=== PATIENT | male | born 1990 | race Caucasian/White ===

== ENCOUNTER 2021-06-21 16:21 | Emergency (ER) | payer OTHER, SELFPAY ==
--- NOTE | 2021-06-21 17:35 | HMH.EDUTC ---
[facility] [place] Impression: Abscess of right axilla Disposition: Home, Self-Care Condition on Discharge: Good Instructions: Boil Additional Instructions: Apply warm wet compresses to the affected sites three or four times per day for 15 minutes as tolerated. Take the antibiotics as directed. Follow up with your regular doctor. GO TO THE ER FOR ANY WORSENING SYMPTOMS OR CONCERNS Prescriptions: Sulfamethoxazole/Trimethoprim [Bactrim DS tablet] 1 each PO BID 10 Days #20 tab Transmission Status: Pending to [facility] Mupirocin [Bactroban 2% Ointment 22gm tube] 1 applicatio TP TID 7 Days #1 gm Transmission Status: Pending to [facility] cephALEXin [cephALEXin 500mg capsule] 500 mg PO Q6H 10 Days #40 cap [facility] Referrals: Provider,Referral, MD [Primary Care Provider] - Time of Disposition: 18:12 Medical Decision Making - Medical Records Medical records reviewed: No: I reviewed the patient's medical records. - Gianfranco Inquiry Pt receiving controlled substance: No Vital Signs: 06/21/21 17:38 Temperature 98.8 F Temperature Source Oral Pulse Rate [Right Brachial] 123 H Respiratory Rate 18 Blood Pressure [Right Arm] 139/89 Blood Pressure Mean [Right Arm] 105 Blood Pressure Source [Right Arm] Automatic Cuff Blood Pressure Position [Right Arm] Sitting 02 Sat by Pulse Oximetry 99 Oxygen Delivery Method Room Air Orders (Tests/Meds): ED MEDICATIONS Discontinued Medications Generic Name Dose Route Start Last Admin Trade Name Nenoq PRN Reason Stop Dose Admin Ceftriaxone Sodium 1 gm 06/21/21 17:52 06/21/21 18:00 Ceftriaxone 1gm Vial IM 06/21/21 17:53 1 gm ONCE ONE Administration Lidocaine HCl 0 ml 06/21/21 17:52 06/21/21 18:00 Lidocaine 1% 5ml Pf Vial IM 06/21/21 17:53 2.1 ml ONCE ONE [place] [facility] [place] - General Stated complaint: sPOT UNDER r aRM Time Seen by Provider: 06/21/21 17:35 - History of Present Illness Provider Complaint: He states that he has multiple boils under his left arm. These have been present for the past 3 days. He states they are very painful and tender to touch. - Related Data Previous Rx's Medication Instructions Recorded Mupirocin [Bactroban 2% Ointment 1 applicatio TP TID 7 Days #1 gm 06/21/21 22gm tube] Sulfamethoxazole/Trimethoprim 1 each PO BID 10 Days #20 tab 06/21/21 [Bactrim DS tablet] cephALEXin [cephALEXin 500mg 500 mg PO Q6H 10 Days #40 cap 06/21/21 capsule] Allergies Allergy/AdvReac Type Severity Reaction Status Date / Time NO KNOWN ALLERGIES Allergy Uncoded 07/19/17 15:11 [facility] History - Hepatitis A Screen Attestation statement:: This patient has been screened for Hepatitis A risk factors. I have reviewed the patient's past medical history: Yes ROS Obtained: Yes All systems reviewed & no additional complaints - Constitutional Constitutional: Denies chills, Denies fever(s) - Eyes Eyes: Denies eye discharge - Musculoskeletal Musculoskeletal: Denies joint pain, Denies back pain, Denies neck pain - Integumentary/Breasts Skin/Breast: Reports as per HPI Physical Exam - General General appearance: alert, in no apparent distress - Head Head exam: atraumatic, normocephalic, normal inspection - Eye Eye exam: Present: normal appearance, PERRL, EOMI - ENT ENT exam: Present: normal exam, normal oropharynx, mucous membranes moist, TM's normal bilaterally, normal external ear exam - Neck Neck exam: Present: normal inspection, full ROM, trachea midline. Absent: meningismus, lymphadenopathy - Chest Chest inspection: Present: normal inspection, symmetric chest wall rise. Absent: tenderness - Respiratory Respiratory exam: Present: normal lung sounds bilaterally. Absent: respiratory distress - Cardiovascular Cardiovascular exam: Present: regular rate, normal rhythm. Absent: JVD - A
[2021-06-21 17:38] VITALS: BP 139/89; PULSE 123; RESP 18; TEMP 37.1; O2SAT 99; BMI 23.6
[2021-06-21 18:25] VITALS: BP 139/89; PULSE 123; RESP 18; TEMP 37.1; O2SAT 99
== END 2021-06-21 18:25 | disposition home or self-care (01) ==
PROVIDERS: Emergency Provider Nurse Practitioner Family
DX: L02.411 Cutaneous abscess of right axilla (principal)
CPT/HCPCS: 96372; 99202; G0463

== ENCOUNTER 2022-07-06 23:46 | Emergency (ER) | payer OTHER, SELFPAY ==
--- NOTE | 2022-07-06 23:42 | ECG_ITS ---
APPROVED REPORT Exam: Resting ECG HR:75 bpm ECG Measurements Heart Rate 75 AXES VT 127 P 62 QRSd 83 QRS 75 QT 347 T 79 QTc 376 Conclusion SINUS RHYTHM WITH SINUS ARRHYTHMIA NORMAL ECG UNCONFIRMED REPORT Electronically signed by : Abram Montano MD 07/07/2022 21:54:04
[2022-07-06 23:48] VITALS: BP 137/102; PULSE 86; RESP 18; TEMP 36.8; O2SAT 100; BMI 25.8
[2022-07-07 00:02] VITALS: BP 137/102; PULSE 77; RESP 21; O2SAT 100
--- NOTE | 2022-07-07 00:04 | XR_ITS ---
PROCEDURE INFORMATION: Exam: XR Chest Exam date and time: 07/07/2022 12:04 AM Age: 32 years old Clinical indication: On breathing and sternal or substernal pain; Additional info: Cp, states he is always SOA TECHNIQUE: Imaging protocol: Radiologic exam of the chest. Views: 2 views. Total images: 1 COMPARISON: No relevant prior studies available. FINDINGS: Lungs: Unremarkable. No consolidation. Pleural spaces: Unremarkable. No pleural effusion. No pneumothorax. Heart/Mediastinum: Unremarkable. No cardiomegaly. Bones/joints: Unremarkable. IMPRESSION: No acute findings.
--- NOTE | 2022-07-07 00:04 | CT_ITS ---
PROCEDURE INFORMATION: Exam: CTA Chest With Contrast Exam date and time: 07/07/2022 12:18 AM Age: 32 years old Clinical indication: On breathing and sternal or substernal pain; Patient HX: States he is always SOA; Additional info: Cp TECHNIQUE: Imaging protocol: Computed tomographic angiography of the chest with contrast. 3D rendering (Not supervised by radiologist): MIP and/or 3D reconstructed images were created by the technologist. Total images: 2 Radiation optimization: All CT scans at this facility use at least one of these dose optimization techniques: automated exposure control; mA and/or kV adjustment per patient size (includes targeted exams where dose is matched to clinical indication); or iterative reconstruction. Contrast material: ISOVUE; Contrast volume: 70 ml; Contrast route: INTRAVENOUS (IV); COMPARISON: CR XR CHEST 2V 07/07/2022 12:04 AM FINDINGS: Pulmonary arteries: Pulmonary artery evaluation is of excellent technical quality with no pulmonary artery embolism. 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 Aorta: No thoracic aortic aneurysm, dissection or other acute thoracic aortic injury. Lungs: Benign granulomatous disease of the lung is noted. Bronchial inflammation is evident. Pleural spaces: Unremarkable. No pneumothorax. No pleural effusion. Heart: Unremarkable. No cardiomegaly. No pericardial effusion. Lymph nodes: Unremarkable. No enlarged lymph nodes. Bones/joints: Unremarkable. No acute fracture. Soft tissues: Unremarkable. IMPRESSION: 1. No pulmonary artery embolism. 2. No thoracic aortic aneurysm, dissection or other acute thoracic aortic injury. 3. Findings of mild bronchial inflammation/bronchitis. No consolidation.
[2022-07-07 00:08] LABS: Coronavirus 19, PCR Not Detected (NotDetected); Influenza A, PCR Not Detected (NotDetected); Influenza B, PCR Not Detected (NotDetected)
[2022-07-07 00:20] LABS: Alanine Aminotransferase 25 U/L (12-78); Albumin Level 4.7 g/dl (3.5-5.0); Albumin/Globulin Ratio 1.2 (1.1-1.8); Alkaline Phosphatase 98 U/L (38-126); Amylase 72 U/L (30-110); Anion Gap 12.7 mEq/L (5-15); Aspartate Amino Transferase 31 U/L (17-59); Blood Urea Nitrogen 7 mg/dl (9-20); Calcium 9.9 mg/dl (8.4-10.2); Carbon Dioxide 32 mmol/L (22.0-30.0); Chloride 101 mmol/L (98-107); Creatinine Clearance Estimated 150 mL/min (50-200); Estimated Glomerular Filt Rate 111 ml/min (>60); GFR (African American) 134 ML/MIN (>60); Globulin 3.8 g/dL (1.3-3.2); Glucose 91 mg/dl (74-100); Lipase 64 U/L (23-300); Magnesium 2.2 mg/dl (1.6-2.3); Potassium 3.7 mmoL/L (3.5-5.1); Sodium 142 mmol/L (136-145); Total Protein,Serum 8.5 g/dl (6.3-8.2)
[2022-07-07 00:30] VITALS: BP 147/105; PULSE 74; RESP 17; O2SAT 99
[2022-07-07 00:32] LABS: Troponin I < 0.01 ng/ml (0.00-0.034)
[2022-07-07 00:59] LABS: Basophils # 0.1 K/mm3 (0-0.2); Basophils % 1.1 % (0.1-2.0); Eosinophils % 0.7 % (0.1-12.0); Hematocrit 49.8 % (42.0-52.0); Hemoglobin 16.5 g/dL (14.1-18.0); Lymphocytes # 1.7 K/mm3 (0.7-4.5); Lymphocytes % 25.9 % (10-50); Mean Corpuscular HGB Conc 33.1 g/dL (31.8-35.4); Mean Corpuscular Hemoglobin 30.9 pg (27.0-31.2); Mean Corpuscular Volume 93.5 fl (80-94); Mean Platelet Volume 8.5 fl (7.4-10.4); Monocytes # 0.5 K/mm3 (0.1-1.0); Monocytes % 7.8 % (1.7-9.3); Neutrophils # 4.2 K/mm3 (1.8-7.8); Neutrophils % 64.5 % (37.0-80.0); Platelet Count 381 K/mm3 (142-424); Red Blood Count 5.33 M/mm3 (4.60-6.20); White Blood Count 6.6 K/mm3 (4.8-10.8)
[2022-07-07 01:00] VITALS: BP 147/88; PULSE 59; RESP 18; O2SAT 99
--- NOTE | 2022-07-07 01:37 | HMH.EDCP ---
Discharge Plan Disposition Chief Complaint: Chest Pain Prescriptions Prescriptions: No Action sulfamethoxazole-trimethoprim 1 EACH tablet 1 each PO BID 10 Days Qty: 20 0RF cephalexin 500 MG capsule 500 mg PO Q6H 10 Days Qty: 40 0RF mupirocin 22 GM ointment 1 applicatio TP TID 7 Days Qty: 1 0RF Referrals Follow up/Referrals: Provider,Referral, MD [Primary Care Provider] - See instructions Clinical Impressions Clinical Impression: Atypical chest pain Instructions Patient Instructions: DI for Atypical Chest Pain Discharge ED Provider: Stephen Zabala Chest Pain HPI General Chief Complaint: Chest Pain Stated Complaint: Chest Pain Time Seen by Provider: 07/07/22 01:37 Mode of Arrival: Ambulatory Source of Information: Patient and Medical Record Limitations: No Limitations Description of Symptoms (Recalled from ER Triage Doc. by RN): Pt c/o chest pain that began last night. States the pain is midline and does not radiate, however, patient states that earlier today it did radiate. Pt states that the pain is worse with inspiration and gets better when he doesnot move. History of Present Illness HPI narrative: mid ant- chest pain which started about 24 hrs ago with no fever or cough and no recent viral illness - no positional pain and - no known cardiac illness - MD complaint: chest pain indicative of cardiac Onset (ago): day(s) Duration: intermittent Activity at onset: during rest Pain location: left chest Severity: moderate Quality: sharp Pain radiation: none Associated symptoms: dyspnea Risk Factors for CAD: Family Hx of CAD and Smoking Treatments prior to or on arrival for Cardiac Chest Pain: none NOÉ Score for Non-Stemi Age of Patient: 30-39 years old Heart Rate: 50-69 bpm Systolic Blood Pressure: 140-159 mmHg Serum Creatinine: 0.80-1.19 mg/dl CHF [place] Class: I-No CHF Other Risk Factors: None Non-Stemi Risk Score: 42 Related Data Previous Rx's Medication Instructions Recorded cephalexin 500 mg capsule 500 mg PO Q6H 10 days #40 caps 06/21/21 mupirocin 2 % topical ointment 1 applicatio TP TID 7 days ##1 06/21/21 sulfamethoxazole 800 1 each PO BID 10 days #20 tabs 06/21/21 mg-trimethoprim 160 mg tablet Allergies Allergy/AdvReac Type Severity Reaction Status Date / Time NO KNOWN ALLERGIES Allergy Uncoded 07/19/17 15:11 [facility] Disclaimer: The information contained in this section may have been updated after the patient was seen, as this information can be updated by other users. Social History Smoking Status: Current every day smoker alcohol intake: never current occupational status: employed Travel in the last 8 weeks: None ROS Obtained: Yes All systems reviewed & no additional complaints except as documented Physical Exam General General appearance: alert Head Head exam: normocephalic Eye Eye exam: Present PERRL and EOMI ENT ENT exam: Present mucous membranes moist Neck Neck exam: Present trachea midline Chest Chest inspection: Absent tenderness Respiratory Respiratory exam: Present normal lung sounds bilaterally; Absent respiratory distress Cardiovascular Cardiovascular exam: Present regular rate; Absent systolic murmur Abdominal Exam Abdominal exam: Present soft Extremities Exam Extremities exam: Present full ROM Neurological Exam Neurological exam: Present alert, oriented X3 and CN II-XII intact Psychiatric Psychiatric exam: Present normal affect Skin Skin exam: Absent rash Medical Decision Making Medical Records Medical records reviewed: Yes I reviewed the patient's medical records. Gianfranco Inquiry Pt receiving controlled substance: No Vital Signs: 07/06/22 23:48 07/07/22 00:02 07/07/22 00:30 Temperature 98.2 F Temperature Source Oral Pulse Rate 77 74 Pulse Rate [Apical] 86 Respiratory Rate 18 21 17 Blood Pressure 137/102 H 147/105 H Blood Pressure [Right Arm] 137/102 H Blood Pressure Mean [Right Arm] 113 Bl
[2022-07-07 01:55] VITALS: BP 140/80; PULSE 59; PULSE 82; RESP 18; TEMP 36.6; O2SAT 99
== END 2022-07-07 01:59 | disposition home or self-care (01) ==
PROVIDERS: Emergency Provider Emergency Medicine
DX: R07.9 Chest pain, unspecified (principal); Z20.822 Contact with and (suspected) exposure to COVID-19; F17.200 Nicotine dependence, unspecified, uncomplicated; Z79.899 Other long term (current) drug therapy; Z82.49 Family history of ischemic heart disease and other diseases of the circulatory system; Z81.2 Family history of tobacco abuse and dependence
CPT/HCPCS: 71046; 71275; 80053; 82150; 83690; 83735; 84484; 85025; 93005; 96361; 96374; 96375; 99285; C9803; Q9967; U0003; U0005

== ENCOUNTER 2022-08-01 22:11 | Emergency (ER) | payer OTHER, SELFPAY ==
[2022-08-01 22:11] VITALS: BP 145/76; PULSE 96; RESP 16; TEMP 39.4; O2SAT 97; BMI 24.3
[2022-08-01 22:22] VITALS: BMI 24.3
[2022-08-01 22:28] LABS: Coronavirus 19, PCR Not Detected (NotDetected); Influenza A, PCR Not Detected (NotDetected); Influenza B, PCR Not Detected (NotDetected)
[2022-08-01 22:38] LABS: Strep Scrn Group A (Rapid) Negative (Negative)
[2022-08-01 23:00] VITALS: BP 135/62; PULSE 90; O2SAT 97
[2022-08-01 23:30] VITALS: BP 124/64; PULSE 89; O2SAT 94
--- NOTE | 2022-08-01 23:32 | XR_ITS ---
PROCEDURE INFORMATION: Exam: XR Chest Exam date and time: 08/01/2022 11:39 PM Age: 32 years old Clinical indication: Cough and fever; Additional info: Fever cough TECHNIQUE: Imaging protocol: Radiologic exam of the chest. Views: 2 views. COMPARISON: CR XR CHEST 2V 07/07/2022 12:04 AM FINDINGS: Lungs: Normal pulmonary expansion. Pulmonary vasculature grossly normal. No gross pulmonary infiltrates or edema pattern. Pleural spaces: No pleural effusion. No pneumothorax. Heart/Mediastinum: Heart size normal. No tracheal/mediastinal shift. Bones/joints: No acute osseous abnormalities are identified. IMPRESSION: No acute thoracic process.
[2022-08-02] VITALS: BP 119/62; PULSE 83; O2SAT 96
--- NOTE | 2022-08-02 00:14 | HMH.EDURI ---
Discharge Plan Disposition Patient Disposition: Home, Self-Care Prescriptions Prescriptions: New azithromycin [azithromycin] 250 mg tablet 250 mg PO DIRECTED Qty: 6 0RF Rx Instructions: Take two (2) tablets on day #1, then one (1) tablet day #2 thru #5 prednisone [prednisone] 20 mg tablet 20 mg PO DAILY Qty: 7 0RF No Action sulfamethoxazole-trimethoprim 1 EACH tablet 1 each PO BID 10 Days Qty: 20 0RF cephalexin 500 MG capsule 500 mg PO Q6H 10 Days Qty: 40 0RF mupirocin 22 GM ointment 1 applicatio TP TID 7 Days Qty: 1 0RF Referrals Follow up/Referrals: Provider,Referral, MD [Primary Care Provider] - See instructions Clinical Impressions Clinical Impression: Bronchitis Instructions Patient Instructions: DI for Acute Bronchitis Discharge ED Provider: Stephen Zabala URI/Sore Throat HPI General Chief Complaint: Upper Respiratory Infection Stated Complaint: fever,sore throat, wekness Time Seen by Provider: 08/02/22 00:14 Mode of Arrival: Ambulatory Source of Information: Patient and Medical Record Limitations: No Limitations Description of Symptoms (Recalled from ER Triage Doc. by RN): pt c/o fever, sore throat, body aches, cough that started today.q History of Present Illness HPI Narrative: sore throat with fever and cough Complaint: fever and cough Onset (ago): hour(s) Duration: intermittent Severity: moderate Able to tolerate fluids by mouth: Yes Associated symptoms: fever Related Data Previous Rx's Medication Instructions Recorded cephalexin 500 mg capsule 500 mg PO Q6H 10 days #40 caps 06/21/21 mupirocin 2 % topical ointment 1 applicatio TP TID 7 days ##1 06/21/21 sulfamethoxazole 800 1 each PO BID 10 days #20 tabs 06/21/21 mg-trimethoprim 160 mg tablet azithromycin 250 mg tablet 250 mg PO DIRECTED #6 tabs 08/02/22 prednisone 20 mg tablet 20 mg PO DAILY #7 tabs 08/02/22 Allergies Allergy/AdvReac Type Severity Reaction Status Date / Time NO KNOWN ALLERGIES Allergy Uncoded 07/19/17 15:11 [facility] Disclaimer: The information contained in this section may have been updated after the patient was seen, as this information can be updated by other users. Social History (Updated 07/07/22 @ 01:52 by Stephen Zabala MD) Smoking Status: Current every day smoker alcohol intake: never current occupational status: employed Travel in the last 8 weeks: None ROS Obtained: Yes All systems reviewed & no additional complaints except as documented Physical Exam General General appearance: alert Head Head exam: normocephalic Eye Eye exam: Present PERRL and EOMI ENT ENT exam: Present normal oropharynx and mucous membranes moist Neck Neck exam: Present trachea midline Respiratory Respiratory exam: Absent respiratory distress Cardiovascular Cardiovascular exam: Present regular rate Abdominal Exam Abdominal exam: Present soft; Absent tenderness Extremities Exam Extremities exam: Present full ROM Neurological Exam Neurological exam: Present alert, oriented X3 and CN II-XII intact Psychiatric Psychiatric exam: Present normal affect Skin Skin exam: Absent rash Medical Decision Making Medical Records Medical records reviewed: Yes I reviewed the patient's medical records. Gianfranco Inquiry Pt receiving controlled substance: No Vital Signs: 08/01/22 22:11 08/01/22 23:00 08/01/22 23:30 Temperature 103 F H Temperature Source Oral Pulse Rate 90 89 Pulse Rate [Right] 96 H Respiratory Rate 16 Blood Pressure 135/62 124/64 Blood Pressure [Right Arm] 145/76 H Blood Pressure Mean [Right Arm] 99 02 Sat by Pulse Oximetry 97 97 94 L 08/02/22 00:00 Temperature Temperature Source Pulse Rate 83 Pulse Rate [Right] Respiratory Rate Blood Pressure 119/62 Blood Pressure [Right Arm] Blood Pressure Mean [Right Arm] 02 Sat by Pulse Oximetry 96 Lab Data Lab results reviewed: Yes I reviewed the patient's lab results.
[2022-08-02 00:31] VITALS: BP 114/70; PULSE 90; RESP 16; TEMP 37.1; O2SAT 96
== END 2022-08-02 00:33 | disposition home or self-care (01) ==
PROVIDERS: Emergency Provider Emergency Medicine
DX: J20.9 Acute bronchitis, unspecified (principal); F17.210 Nicotine dependence, cigarettes, uncomplicated; Z20.822 Contact with and (suspected) exposure to COVID-19
CPT/HCPCS: 71046; 87430; 99283; 99284; C9803; U0003; U0005